=== PATIENT | female | born 1970 | race American Indian/Alaskan Native ===

== ENCOUNTER 2017-03-31 10:00 | Emergency (ER) | payer SELFPAY ==
[2017-03-31 10:53] LABS: Basophils % (Auto) 0.8 % (0.0-1.8); Eosinophils % (Auto) 2.6 % (0.0-4.3); Hematocrit 37.9 % (30.3-42.9); Hemoglobin 12.5 gm/dl (10.1-14.3); Mean Corpuscular HGB Conc 33 % (30-34); Mean Corpuscular Hemoglobin 30 pg (28-32); Mean Corpuscular Volume 90 fl (79-97); Platelet Count 145 K/mm3 (140-440); Red Blood Count 4.21 M/mm3 (3.65-5.03); Red Cell Distribution Width 14.7 % (13.2-15.2); White Blood Count 3.7 K/mm3 (4.5-11.0)
[2017-03-31 11:11] LABS: Alanine Aminotransferase 12 units/L (7-56); Albumin 3.5 g/dL (3.9-5); Albumin/Globulin Ratio 1.1 %; Alkaline Phosphatase 70 units/L (35-129); Anion Gap 14 mmol/L; BUN/Creatinine Ratio 21.66; Blood Urea Nitrogen 13 mg/dL (7-17); Calcium 8.5 mg/dL (8.4-10.2); Carbon Dioxide 25 mmol/L (22-30); Chloride 106.7 mmol/L (98-107); Glucose 87 mg/dL (65-100); Potassium 4.3 mmol/L (3.6-5.0); Sodium 141 mmol/L (137-145); Total Protein 6.7 g/dL (6.3-8.2)
[2017-03-31 11:42] LABS: INR 1.03 (0.87-1.13); Partial Thromboplastin Time 26.7 Sec. (24.2-36.6)
[2017-03-31] MEDS ORDERED: MOTRIN PO ONE (21:04)
--- NOTE | 2017-03-31 21:08 | Emergency Department Report ---
ED General Adult HPI - General Chief complaint: Extremity Injury, Lower Stated complaint: RIGHT LEG/FEET SWELLING/PAIN Time Seen by Provider: 03/31/17 20:58 Source: patient Mode of arrival: Ambulatory Limitations: No Limitations - History of Present Illness Initial comments: 46-year-old female with history of hypertension, asthma, mild CHF not currently on any diuretics, lap band with significant weight loss presented today because of right lower leg pain and swelling. Patient states that this been going on for the last 2 weeks. She does notice some edema on especially around the ankle and pain in the starts around the lower leg and sometimes radiates up to the thigh. Has no associated numbness or weakness. Is able to ambulate without difficulty. No chest pain or shortness of breath or palpitations. - Related Data Home Medications Medication Instructions Recorded Confirmed Last Taken Lisinopril [Zestril TAB] 40 mg PO QDAY 05/15/16 05/15/16 Unknown Previous Rx's Medication Instructions Recorded Last Taken Type Furosemide [Lasix] 40 mg PO DAILY #30 tablet 09/17/13 Unknown Rx Ibuprofen [Motrin 800 MG tab] 800 mg PO Q8HR PRN #30 tablet 05/15/16 Unknown Rx Penicillin Vk [Veetids TAB] 500 mg PO QID #40 tablet 05/15/16 Unknown Rx Allergies Allergy/AdvReac Type Severity Reaction Status Date / Time No Known Allergies Allergy Verified 03/31/17 10:21 ED Review of Systems ROS: Stated complaint: RIGHT LEG/FEET SWELLING/PAIN Other details as noted in HPI Comment: All other systems reviewed and negative Constitutional: denies: diaphoresis, fever Respiratory: denies: cough Cardiovascular: denies: chest pain Gastrointestinal: denies: abdominal pain, vomiting, diarrhea Genitourinary: denies: urgency, dysuria Skin: denies: rash Neurological: denies: headache Psychiatric: denies: anxiety ED Past Medical Hx - Past Medical History Hx Hypertension: Yes Hx Congestive Heart Failure: Yes Hx Asthma: Yes Hx COPD: No Additional medical history: Cardio-myopathy - Surgical History Hx Coronary Stent: Yes Hx Open Heart Surgery: Yes Hx Cholecystectomy: Yes Additional Surgical History: lap band surgery, bowel obstruction - Social History Smoking Status: Never Smoker Substance Use Type: Alcohol - Medications Home Medications: Home Medications Medication Instructions Recorded Confirmed Last Taken Type Furosemide [Lasix] 40 mg PO DAILY #30 tablet 09/17/13 05/15/16 Unknown Rx Ibuprofen [Motrin 800 MG tab] 800 mg PO Q8HR PRN #30 tablet 05/15/16 Unknown Rx Lisinopril [Zestril TAB] 40 mg PO QDAY 05/15/16 05/15/16 Unknown History Penicillin Vk [Veetids TAB] 500 mg PO QID #40 tablet 05/15/16 Unknown Rx ED Physical Exam - General Limitations: No Limitations General appearance: alert, in no apparent distress - Head Head exam: Present: atraumatic - Neck Neck exam: Present: normal inspection - Respiratory Respiratory exam: Absent: respiratory distress - Cardiovascular Cardiovascular Exam: Present: regular rate, normal rhythm - GI/Abdominal GI/Abdominal exam: Present: soft. Absent: distended, tenderness - Expanded Lower Extremity Exam Right Lower Leg exam: Present: swelling (there is some mild edema around the ankle, the right lower leg appears the same sizable left lower leg, no significant tenderness or erythema or warmth, sensation intact distally, is able to move all her toes without difficulty, DP and PT pulses 2+) - Neurological Exam Neurological exam: Present: alert, oriented X3. Absent: motor sensory deficit - Psychiatric Psychiatric exam: Present: normal affect - Skin Skin exam: Present: intact ED Course Vital Signs 03/31/17 10:21 Temperature 98.2 F Pulse Rate 56 L Respiratory 18 Rate Blood Pressure 141/72 O2 Sat by Pulse 100 Oximetry ED Medical Decision Making - Lab Data Result diagrams: 03/31/17 10:36 03/31/17 10:36 - Medical Decision Making Labs are unremarkable including normal kidney function and proBNP, preliminary ultrasound duplex results shows no evidence of DVT. The results of the patient. Recommended follow-up with primary care doctor. Patient is stable for discharge. Critical care attestation.: If time is entered above; I have spent that time in minutes in the direct care of this critically ill patient, excluding procedure time. ED Disposition Clinical Impression: Right leg pain Disposition: DISCHARGED TO HOME OR SELFCARE Is pt being admited?: No Does the pt Need Aspirin: No Condition: Stable Instructions: Leg Edema (ED) Additional Instructions: Please follow up with the primary care physician in the next 3-5 days. Return to the emergency room immediately if your symptoms worsen significantly or you develop any new symptoms. Referrals: PRIMARY CARE, [Primary Care Provider] - 3-5 Days Time of Disposition: 21:15
[2017-03-31 22:04] VITALS: BP 139/74
== END 2017-03-31 21:20 | disposition home or self-care (01) ==
LOC: ED 10:00
DX: M79.604 Pain in right leg (principal); I10 Essential (primary) hypertension; I50.9 Heart failure, unspecified; J45.909 Unspecified asthma, uncomplicated; Z90.49 Acquired absence of other specified parts of digestive tract
CPT/HCPCS: 36415; 80053; 83880; 85025; 85610; 85730